=== PATIENT | male | born 1945 | race Caucasian/White ===

== ENCOUNTER 2022-07-22 14:07 | Outpatient (REF) | payer BC, SELFPAY ==
--- NOTE | 2022-07-22 12:00 | SKI_PTH ---
PATIENT: Michael Brand LOC: [facility] U#:[id number] AGE/SX: 77/M ROOM: RE07/22/[address]: Elías Meyers MD : 1945 BED: DIS: 07/22/2022 SPEC #: [id number] RECD: 07/23/22 12:21 STATUS: MICHEL REKaya #: [id number] MONTY: 07/22/22 12:[address]: Elías Meyers DEPT: Surgical Specimen RECD BY: Yesy Gonzalez ENTERED: 07/23/22 12:22 SP TYPE: SKI OTHR DR: Michael Monge Tissues: 1 - SKIN BIOPSY(SHAVE/PUNCH) Procedures: SKIN LEVEL 4 Comments: [id number]
== END 2022-07-22 14:08 | disposition home or self-care (01) ==
LOC: LBN 14:07
PROVIDERS: PCP Family Medicine; Visit Provider Otolaryngology
DX: L82.1 Other seborrheic keratosis (principal)
CPT/HCPCS: 88305

== ENCOUNTER 2023-03-16 12:26 | Outpatient (REF) | payer BC, SELFPAY ==
--- NOTE | 2023-03-16 11:45 | SKI_PTH ---
PATIENT: Michael Brand LOC: [facility] U#:[id number] AGE/SX: 78/M ROOM: RE03/16/[address]: Elías Meyers MD : 1945 BED: DIS: 03/16/2023 SPEC #: [id number] RECD: 03/16/23 16:47 STATUS: MICHEL BARAJAS #: [id number] MONTY: 03/16/23 11:[address]: Elías Meyers DEPT: Surgical Specimen RECD BY: Yesy Gonzalez ENTERED: 03/16/23 16:48 SP TYPE: SKI OTHR DR: Michael Monge Tissues: 1 - SKIN BIOPSY(SHAVE/PUNCH) Procedures: SKIN LEVEL 4 Comments: [id number]
== END 2023-03-16 12:27 | disposition home or self-care (01) ==
LOC: LBN 12:26
PROVIDERS: PCP Family Medicine; Visit Provider Otolaryngology
DX: L82.1 Other seborrheic keratosis (principal)
CPT/HCPCS: 88305

== ENCOUNTER 2023-07-07 08:29 | Outpatient (REF) | payer BC, SELFPAY ==
--- NOTE | 2023-07-07 07:40 | SKI_PTH ---
PATIENT: Michael Brand LOC: [facility] U#:[id number] AGE/SX: 78/M ROOM: RE07/07/[address]: Elías Meyers MD : 1945 BED: DIS: 07/07/2023 SPEC #: [id number] RECD: 07/07/23 12:43 STATUS: MICHEL BARAJAS #: [id number] MONTY: 07/07/23 07:[address]: Elías Meyers DEPT: Surgical Specimen RECD BY: Yesy Gonzalez Tissues: 1 - SKIN BIOPSY(SHAVE/PUNCH) 2 - SKIN BIOPSY(SHAVE/PUNCH) Procedures: SKIN LEVEL 4 Comments: [id number]
== END 2023-07-07 08:30 | disposition home or self-care (01) ==
LOC: LBO 08:29
PROVIDERS: Visit Provider Otolaryngology
DX: L82.1 Other seborrheic keratosis (principal); C44.222 Squamous cell carcinoma of skin of right ear and external auricular canal
CPT/HCPCS: 88305

== ENCOUNTER 2023-11-03 08:55 | Outpatient (REF) | payer BC, SELFPAY ==
--- NOTE | 2023-11-03 07:30 | SKI_PTH ---
PATIENT: Michael Brand LOC: [facility] U#:[id number] AGE/SX: 78/M ROOM: RE11/03/[address]: Elías Meyers MD : 1945 BED: DIS: 11/03/2023 SPEC #: [id number] RECD: 11/03/23 17:21 STATUS: MICHEL REQ #: [id number] MONTY: 11/03/23 07:[address]: Elías Meyers DEPT: Surgical Specimen RECD BY: Yesy Gonzalez ENTERED: 11/03/23 17:23 SP TYPE: YESI YATES DR: Unknown,Unknown Tissues: 1 - SKIN BIOPSY(SHAVE/PUNCH) Procedures: SKIN LEVEL 4 Comments: [id number]
== END 2023-11-03 08:56 | disposition home or self-care (01) ==
LOC: LBN 08:55
PROVIDERS: Visit Provider Otolaryngology
DX: L82.1 Other seborrheic keratosis (principal)
CPT/HCPCS: 88305